=== PATIENT | female | born 1955 | race American Indian/Alaskan Native ===

== ENCOUNTER 2017-09-14 20:38 | Emergency (ER) | payer MEDICARE ==
--- NOTE | 2017-09-15 07:29 | Emergency Department Report ---
ED Recheck HPI - General Chief Complaint: Medical Clearance Stated Complaint: MED REFILL Time Seen by Provider: 09/15/17 07:17 Source: patient, EMS Mode of arrival: Ambulatory Limitations: No Limitations - History of Present Illness Initial Comments: This is a 62-year-old female nontoxic, well nourished in appearance, no acute signs of distress presents to the ED for medication refill. Patient stated that she see Dr. Sang Jeong which is 3 hours away and stated she currently does not have a ride today but she is out of her medication. Patient stated that she takes "Duplex" medication medication for her bipolar. Patient does not have any old prescription bottles present. Patient stated this is all from memory. Patient denies any drug allergies. Patient denies any suicidal or homicidal indication. Patient denies any chest pain, shortness of breath, fever, chills, nausea, vomiting, numbness or tingling. Patient also states she takes clonidine 0.1 mg daily and Norvasc 5 mg daily. MD Complaint: medication refill request Returns Today for: request for prescription Symptoms Since Prior Visit: no new symptoms Associated Symptoms: none - Related Data Previous Rx's Medication Instructions Recorded Last Taken Type Amlodipine Besylate [Norvasc] 5 mg PO DAILY #30 tablet 09/15/17 Unknown Rx cloNIDine [Catapres] 0.1 mg PO DAILY #30 tablet 09/15/17 Unknown Rx Allergies Allergy/AdvReac Type Severity Reaction Status Date / Time No Known Allergies Allergy Unverified 09/14/17 21:03 ED Review of Systems ROS: Stated complaint: MED REFILL Other details as noted in HPI Constitutional: denies: chills, fever Eyes: denies: eye pain, eye discharge, vision change ENT: denies: ear pain, throat pain Respiratory: denies: cough, shortness of breath, wheezing Cardiovascular: denies: chest pain, palpitations Endocrine: no symptoms reported Gastrointestinal: denies: abdominal pain, nausea, diarrhea Genitourinary: denies: urgency, dysuria, discharge Musculoskeletal: denies: back pain, joint swelling, arthralgia Skin: denies: rash, lesions Neurological: denies: headache, weakness, paresthesias Psychiatric: denies: anxiety, depression Hematological/Lymphatic: denies: easy bleeding, easy bruising ED Past Medical Hx - Past Medical History Hx Hypertension: Yes Hx Psychiatric Treatment: Yes (BIPOLAR) Additional medical history: PERFORATED INTESTINES - Surgical History Additional Surgical History: ABD SURG - Social History Smoking Status: Current Every Day Smoker Substance Use Type: None - Medications Home Medications: Home Medications Medication Instructions Recorded Confirmed Last Taken Type Amlodipine Besylate [Norvasc] 5 mg PO DAILY #30 tablet 09/15/17 Unknown Rx cloNIDine [Catapres] 0.1 mg PO DAILY #30 tablet 09/15/17 Unknown Rx ED Physical Exam - General Limitations: No Limitations General appearance: alert, in no apparent distress - Head Head exam: Present: atraumatic, normocephalic - Eye Eye exam: Present: normal appearance - ENT ENT exam: Present: mucous membranes moist - Neck Neck exam: Present: normal inspection - Respiratory Respiratory exam: Present: normal lung sounds bilaterally. Absent: respiratory distress - Cardiovascular Cardiovascular Exam: Present: regular rate, normal rhythm. Absent: systolic murmur, diastolic murmur, rubs, gallop - GI/Abdominal GI/Abdominal exam: Present: soft, normal bowel sounds - Extremities Exam Extremities exam: Present: normal inspection - Back Exam Back exam: Present: normal inspection - Neurological Exam Neurological exam: Present: alert, oriented X3 - Psychiatric Psychiatric exam: Present: normal affect, normal mood - Skin Skin exam: Present: warm, dry, intact, normal color. Absent: rash ED Course - Reevaluation(s) Reevaluation #1: 09/15/17 07:30 Patient is speaking in full sentences with no signs of distress noted. - Consultations Consultation #1: 09/15/17 07:31 Patient has been consulted with Dr. Miguel about patient history, physical exam , agrees to the discharge plan of care to refill only Norvasc and clonidine. ED Recheck MDM - Medical Decision Making this is a 62-year-old female that presents with medication refill. I tried to call Dr. Domínguez and I was not successful. Patient stated that she takes duplex but I am unaware of medication this is or how many milligrams she takes for her bipolar. I will refill Norvasc and clonidine and I instructed the patient to follow up with a/her primary care doctor in 24 hours for drug refill for psychiatric medication. At time of discharge, the patient does not seem toxic or ill in appearance. No acute signs of distress noted. Patient agrees to discharge treatment plan of care. No further questions noted by the patient. Critical care attestation.: If time is entered above; I have spent that time in minutes in the direct care of this critically ill patient, excluding procedure time. ED Disposition Clinical Impression: Medication refill Disposition: - TO HOME OR SELFCARE Is pt being admited?: No Does the pt Need Aspirin: No Condition: Stable Additional Instructions: Follow-up with a primary care doctor in 24 hours or if symptoms worsen and continue return to emergency room as soon as possible. Prescriptions: Amlodipine Besylate [Norvasc] 5 mg PO DAILY #30 tablet cloNIDine [Catapres] 0.1 mg PO DAILY #30 tablet Referrals: [facility] [Outside] - 3-5 Days PRIMARY CAREMD [Primary Care Provider] - 24 Hours DASHAWN [place] MD [Staff Physician] - 24 Hours TYRONE GASPAR MD [Staff Physician] - 24 Hours [facility] [Outside] - 3-5 Days
[2017-09-15 07:39] VITALS: BP 152/82
== END 2017-09-15 07:57 | disposition home or self-care (01) ==
LOC: ED 20:38
DX: Z76.0 Encounter for issue of repeat prescription (principal); I10 Essential (primary) hypertension; F31.9 Bipolar disorder, unspecified; F17.200 Nicotine dependence, unspecified, uncomplicated
CPT/HCPCS: 99283

== ENCOUNTER 2017-09-19 01:28 | Emergency (ER) | payer MEDICARE ==
[2017-09-19 03:53] VITALS: BP 155/79
--- NOTE | 2017-09-19 06:52 | Emergency Department Report ---
ED Medical Clearance HPI - General Chief complaint: Medical Clearance Stated complaint: MEDICAL CLEARANCE Time Seen by Provider: 09/19/17 06:15 Source: patient Mode of arrival: Ambulatory - History of Present Illness Initial comments: pt. said she was advised to stop her medications a month ago by her psychiatrist. She claims her caregiver advised her to come in for a refill . she denies any suicidal or homicidal ideation. last time she took amlodipine was a week ago Complaint: medical clearance request, other (wants a refill on medications) Onset/Timin (day) -: Gradual Time: 07:48 Reason for Medical Clearance: psychiatric condition Place: home Alledged Intoxication: No Traumatic Symptoms: denies traumatic injury Treatments Prior to Arrival: none Home medications: Previous Rx's Medication Instructions Recorded Last Taken Type cloNIDine [Catapres] 0.1 mg PO DAILY #30 tablet 09/15/17 Unknown Rx Amlodipine Besylate [Norvasc] 5 mg PO DAILY #30 tablet 09/19/17 Unknown Rx Allergies/Adverse reactions: Allergies Allergy/AdvReac Type Severity Reaction Status Date / Time No Known Allergies Allergy Unverified 09/14/17 21:03 ED Review of Systems ROS: Stated complaint: MEDICAL CLEARANCE Other details as noted in HPI Comment: All other systems reviewed and negative ED Past Medical Hx - Past Medical History Previous Medical History?: Yes Hx Hypertension: Yes Hx Psychiatric Treatment: Yes (BIPOLAR) Additional medical history: PERFORATED INTESTINES - Surgical History Past Surgical History?: Yes Additional Surgical History: ABD SURG - Social History Smoking Status: Current Every Day Smoker Substance Use Type: Prescribed - Medications Home Medications: Home Medications Medication Instructions Recorded Confirmed Last Taken Type cloNIDine [Catapres] 0.1 mg PO DAILY #30 tablet 09/15/17 Unknown Rx Amlodipine Besylate [Norvasc] 5 mg PO DAILY #30 tablet 09/19/17 Unknown Rx ED Physical Exam - General Limitations: No Limitations General appearance: alert, in no apparent distress - Head Head exam: Present: atraumatic, normocephalic - Eye Eye exam: Present: normal appearance, PERRL Pupils: Present: normal accommodation - ENT ENT exam: Present: mucous membranes moist - Neck Neck exam: Present: normal inspection - Respiratory Respiratory exam: Present: normal lung sounds bilaterally. Absent: respiratory distress - Cardiovascular Cardiovascular Exam: Present: regular rate, normal rhythm. Absent: systolic murmur, diastolic murmur, rubs, gallop - GI/Abdominal GI/Abdominal exam: Present: soft, normal bowel sounds - Rectal Rectal exam: Present: deferred - Extremities Exam Extremities exam: Present: normal inspection - Back Exam Back exam: Present: normal inspection - Neurological Exam Neurological exam: Present: alert, oriented X3 - Psychiatric Psychiatric exam: Present: normal affect, normal mood - Skin Skin exam: Present: warm, dry, intact, normal color. Absent: rash ED Course Vital Signs 09/19/17 09/19/17 09/19/17 01:38 01:44 03:28 Temperature 98.0 F 98 F Pulse Rate 91 H 93 H Respiratory 18 18 18 Rate Blood Pressure 169/73 169/73 Blood Pressure [Left] O2 Sat by Pulse 88 100 98 Oximetry 09/19/17 09/19/17 03:52 07:10 Temperature 98 F Pulse Rate 82 Respiratory 18 18 Rate Blood Pressure Blood Pressure 155/79 [Left] O2 Sat by Pulse 100 100 Oximetry ED Medical Decision Making - Medical Decision Making pt. is not suicidal or homicidal and her psychiatrist advised her to stop her medicatuions. she claims the ones she needs a refill on her congentin, depakote and clonidine .the clonidine she takes for blood pressure and as not taken all these for 2 weeks ED Disposition Clinical Impression: Medication refill, Accelerated hypertension Disposition: - TO HOME OR SELFCARE Is pt being admited?: No Does the pt Need Aspirin: No Condition: Stable Instructions: Hypertension (ED) Additional Instructions: follow up with your psychiatrist for a refill of your congentin and depakote . also talk to your primary care doctor that since you have not taken clonidine for 2 weeks do you still need it Prescriptions: Amlodipine Besylate [Norvasc] 5 mg PO DAILY #30 tablet Referrals: MARIA LOPEZ MD [Primary Care Provider] - 3-5 Days Time of Disposition: 07:56 Print Language: MACEDONIAN
== END 2017-09-19 08:55 | disposition home or self-care (01) ==
LOC: ED 01:28
DX: I10 Essential (primary) hypertension (principal); F31.9 Bipolar disorder, unspecified; F17.200 Nicotine dependence, unspecified, uncomplicated
CPT/HCPCS: 99283

== ENCOUNTER 2017-11-01 19:16 | Emergency (ER) | payer MEDICARE ==
[2017-11-01 19:57] VITALS: BP 188/82
[2017-11-01 20:02] LABS: Basophils % (Auto) 0.3 % (0.0-1.8); Eosinophils # (Auto) 0.2 K/mm3 (0.0-0.4); Eosinophils % (Auto) 2.6 % (0.0-4.3); Hematocrit 42.6 % (30.3-42.9); Hemoglobin 14.1 gm/dl (10.1-14.3); Lymphocytes # (Auto) 2.9 K/mm3 (1.2-5.4); Lymphocytes % (Auto) 37.2 % (13.4-35.0); Mean Corpuscular HGB Conc 33 % (30-34); Mean Corpuscular Hemoglobin 30 pg (28-32); Mean Corpuscular Volume 89 fl (79-97); Monocytes # (Auto) 0.8 K/mm3 (0.0-0.8); Monocytes % (Auto) 10.1 % (0.0-7.3); Platelet Count 252 K/mm3 (140-440); Red Blood Count 4.78 M/mm3 (3.65-5.03); Red Cell Distribution Width 14.9 % (13.2-15.2)
[2017-11-01 20:11] LABS: BUN/Creatinine Ratio 29; Blood Urea Nitrogen 23 mg/dL (7-17); Calcium 9.4 mg/dL (8.4-10.2); Hemolysis Index 7
== END 2017-11-01 19:49 | disposition left against medical advice (07) ==
LOC: ED 19:16
DX: F31.9 Bipolar disorder, unspecified (principal); F20.9 Schizophrenia, unspecified; I10 Essential (primary) hypertension; Z53.21 Procedure and treatment not carried out due to patient leaving prior to being seen by health care provider; Z79.899 Other long term (current) drug therapy
CPT/HCPCS: 36415; 80048; 85025; G0480; 80320

== ENCOUNTER 2017-11-26 03:10 | Emergency (ER) | payer MEDICARE ==
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
[2017-11-26 07:44] VITALS: BP 135/74
== END 2017-11-26 07:44 | disposition home or self-care (01) ==
LOC: ED 03:10 → EEVIPCON 03:10 → ED 07:44
DX: S80.812A Abrasion, left lower leg, initial encounter (principal); S80.811A Abrasion, right lower leg, initial encounter; Y08.89XA Assault by other specified means, initial encounter; Y93.89 Activity, other specified; Y92.89 Other specified places as the place of occurrence of the external cause; Y99.8 Other external cause status